=== PATIENT | male | born 1975 | race Caucasian/White ===

== ENCOUNTER 2018-06-14 18:50 | Emergency (ER) | payer SELFPAY ==
[2018-06-14 18:52] VITALS: BP 134/79; PULSE 92; RESP 16; TEMP 37.2; O2SAT 98
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
[2018-06-14] MEDS: Amoxicillin 875/Clav. 125 TAB PO (19:16)
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
[2018-06-14 20:04] VITALS: BP 134/83; PULSE 78; RESP 16; TEMP 37.3; O2SAT 98
--- NOTE | 2018-06-15 10:59 | NUR.NOTE ---
Nursing Note: Patient came to ED stating that he did not receive his prescription on discharge. Per Dr. Clau Beal, I called the [place] in to [facility] [place] [place] amoxicillin-pot clavulanate 875-125 1 tab PO BIC 10 days, Qty 20. Zoe Gamez.
== END 2018-06-14 20:02 | disposition home or self-care (01) ==
LOC: ER 20:06
PROVIDERS: Emergency Provider Emergency Medicine
DX: L03.011 Cellulitis of right finger (principal); S61.051A Open bite of right thumb without damage to nail, initial encounter; Y04.1XXA Assault by human bite, initial encounter
CPT/HCPCS: 90471; 99284; 73130